=== PATIENT | male | born 1985 | race Caucasian/White ===

== ENCOUNTER 2018-11-06 10:50 | Emergency (ER) | payer OTHER ==
[2018-11-06] MEDS: SOD CHLORIDE 0.9% 1,000 ML IV (12:25)
== END 2018-11-06 12:27 | disposition left against medical advice (07) ==
LOC: E/R 10:50
DX: R55 Syncope and collapse (principal); F15.10 Other stimulant abuse, uncomplicated
CPT/HCPCS: 82962; 93005; 99283-25